=== PATIENT | male | born 1965 | race Two or more races ===

== ENCOUNTER 2021-07-07 17:57 | Inpatient (IN) | payer MEDICAID ==
[~2021-07-07] VITALS: Ht 170.2 cm; Wt 106.6 kg
[2021-07-07] MEDS ORDERED: HYDR25TA MT (19:00)
[2021-07-07 21:03] LABS: BASOPHILS % 0.5 % (0.0-2.0); EOSINOPHILS % 0.1 % (0.0-5.0); HEMATOCRIT. 45.9 % (42.0-52.0); HEMOGLOBIN. 15.3 g/dL (14.0-18.0); MEAN CORPUSCULAR HEMOGLOBIN 28.1 pg (28.0-32.0); MEAN CORPUSCULAR VOLUME 84.3 fL (80.0-94.0); MEAN PLATELET VOLUME 8.6 fl (7.4-10.4); MONOCYTES % 8.4 % (2.0-8.0); PLATELET 236 x1000/uL (130-400); RED BLOOD CELL COUNT 5.45 mill/uL (4.7-6.1); RED CELL DISTRIBUTION WIDTH 13.9 % (11.6-14.6)
[2021-07-07 21:11] LABS: CHLORIDE 93 mEq/L (98-107)
[2021-07-07] MEDS ORDERED: CEFTRIAXONE 1 G PREMIX 50 ML IV ONE (22:15)
[2021-07-07] MEDS ORDERED: NITROGLYCERIN 0.4MG TABLET SL SL PRN ×2 (22:15→22:45)
[2021-07-07] MEDS ORDERED: ASPIRIN 81MG TABLET PO ONE (22:15)
[2021-07-07] MEDS ORDERED: FUROSEMIDE 40MG/4ML VIAL IV ONE (22:15)
[2021-07-07] MEDS ORDERED: AZITHROMYCIN 500MG/250ML 250 ML IV ONE (22:15)
[2021-07-07] MEDS ORDERED: AMLODIPINE 5MG TABLET PO SCH (22:30)
[2021-07-07] MEDS ORDERED: ACETAMINOPHEN 325MG TABLET PO ONE (22:45)
[2021-07-07] MEDS ORDERED: ACETAMINOPHEN 325MG TABLET PO PRN (22:45)
[2021-07-07] MEDS ORDERED: ENOXAPARIN 40MG/0.4ML SYR SUBCUT SCH (22:45)
[2021-07-07] MEDS ORDERED: KETOROLAC 15MG/ML VIAL IV PRN ×2 (22:45)
[2021-07-07] MEDS ORDERED: POTASSIUM CHLORIDE 20MEQ TABLET SR PO SCH (22:45)
[2021-07-07] MEDS ORDERED: CLONIDINE 0.1MG TABLET PO PRN (22:45)
[2021-07-07] MEDS ORDERED: ONDANSETRON HCL 4MG/2ML INJ IV PRN (22:45)
[2021-07-07] MEDS ORDERED: ZOLPIDEM TARTRATE 5MG TABLET PO PRN (22:45)
[2021-07-07] MEDS ORDERED: GUAIFENESIN 200MG/10ML SUGAR FREE UDC PO PRN (22:45)
[2021-07-07] MEDS ORDERED: MAGNESIUM/ALUMINUM HYDROXIDE/SIMETHICONE 30ML UDC PO PRN (22:45)
[2021-07-07] MEDS ORDERED: IPRATROPIUM/ALBUTEROL 0.5-3(2.5)MG/3ML NEB NEB PRN (22:45)
[2021-07-07] MEDS ORDERED: DEXTROSE 50% WATER 50ML SYRINGE IV PRN (22:45)
[2021-07-07] MEDS ORDERED: DOCUSATE SODIUM 100MG CAPSULE PO PRN (22:45)
[2021-07-07 23:23] LABS: ETHANOL BLOOD < 10 mg/dL
[2021-07-07 23:24] LABS: TOTAL IRON BINDING CAPACITY 386 ug/dL (250-450)
[2021-07-07] MEDS: AMLODIPINE 10MG TABLET PO SCH (23:35)
[2021-07-07 23:41] LABS: FOLIC ACID (FOLATE) SERUM 15.5 ng/mL (>5.38)
[2021-07-07 23:51] LABS: CLARITY URINE CLEAR (CLEAR); COLOR URINE YELLOW (YELLOW); KETONES URINE 1+ (NEGATIVE); LEUKOCYTE ESTERASE URINE NEGATIVE (NEGATIVE); NITRITE URINE NEGATIVE (NEGATIVE); OCCULT BLOOD URINE 1+ (NEGATIVE); PROTEIN URINE NEGATIVE (NEGATIVE); SPECIFIC GRAVITY URINE 1.018 (1.005-1.030); UROBILINOGEN URINE 0.2 E.U./dL (0.2-1.0)
[2021-07-08 00:02] LABS: *AMPHETAMINES SCREEN URINE NEGATIVE (NEGATIVE); *BARBITURATES SCREEN URINE NEGATIVE (NEGATIVE); *BENZODIAZEPINES SCREEN URINE NEGATIVE (NEGATIVE); *COCAINE SCREEN URINE NEGATIVE (NEGATIVE); OPIATES URINE SCREEN NEGATIVE (NEGATIVE); PHENCYCLIDINE URINE SCREEN NEGATIVE (NEGATIVE)
[2021-07-08 00:04] LABS: CANNABINOID URINE SCREEN NEGATIVE (NEGATIVE); METHADONE URINE SCREEN NEGATIVE (NEGATIVE)
[2021-07-08 08:24] LABS: BASOPHILS % 0.5 % (0.0-2.0); EOSINOPHILS % 0.4 % (0.0-5.0); HEMATOCRIT. 48.2 % (42.0-52.0); LYMPHOCYTES % 13.7 % (20.0-50.0); MEAN CORPUSCULAR HEMOGLOBIN 27.9 pg (28.0-32.0); MEAN CORPUSCULAR VOLUME 83.8 fL (80.0-94.0); MEAN PLATELET VOLUME 9.1 fl (7.4-10.4); MONOCYTES % 9.6 % (2.0-8.0); NEUTROPHILS % 75.8 % (40.0-76.0); PLATELET 261 x1000/uL (130-400); RED BLOOD CELL COUNT 5.75 mill/uL (4.7-6.1); RED CELL DISTRIBUTION WIDTH 13.9 % (11.6-14.6)
[2021-07-08] MEDS: ENOXAPARIN 30MG/0.3ML SYR SUBCUT SCH ×2 (08:32→20:51)
[2021-07-08] MEDS: AMLODIPINE 10MG TABLET PO SCH (08:33)
[2021-07-08] MEDS: FAMOTIDINE 20MG TABLET PO SCH ×2 (08:33→20:50)
[2021-07-08] MEDS: FUROSEMIDE 40MG/4ML VIAL IVP SCH ×3 (08:33→21:05)
[2021-07-08] MEDS: LISINOPRIL 20MG TABLET PO SCH ×2 (08:33→20:50)
[2021-07-08] MEDS: ASPIRIN 325MG EC TABLET PO SCH (08:33)
[2021-07-08] MEDS: ZINC SULFATE 220 MG ( 50 ) CAPSULE PO SCH (08:34)
[2021-07-08] MEDS: ASCORBIC ACID 500 MG TABLET PO SCH ×2 (08:34→20:47)
[2021-07-08] MEDS: CHOLECALCIFEROL (D3) 1000 UNIT TABLET PO SCH (08:34)
[2021-07-08] MEDS: SPIRONOLACTONE 25MG TABLET PO SCH ×2 (08:35→20:49)
[2021-07-08 08:37] LABS: CHLORIDE 96 mEq/L (98-107)
[2021-07-08] MEDS: BLOOD SUGAR DIAGNOSTIC STRIP TEST SCH ×5 (09:04→20:51)
[2021-07-08 09:05] LABS: PHOSPHORUS 2.9 mg/dL (2.5-4.9)
[2021-07-08] MEDS: INSULIN LISPRO 100 UNITS/ML SUBCUT SCH ×4 (09:07→20:52)
[2021-07-08] MEDS ORDERED: INSULIN GLARGINE UD 100 UNITS/ML SYR SUBCUT SCH (10:00)
[2021-07-08 12:00] VITALS: BP 130/88
[2021-07-08 16:00] VITALS: BP 128/79
[2021-07-08 20:00] VITALS: BP 134/78
[2021-07-08 21:26] LABS: CREATINE KINASE MB FRACTION 2.2 ng/mL (0.5-3.6)
[2021-07-09] VITALS: BP 112/69
[2021-07-09 04:00] VITALS: BP 155/88
[2021-07-09] MEDS: BLOOD SUGAR DIAGNOSTIC STRIP TEST SCH ×4 (07:40→21:06)
[2021-07-09 08:00] VITALS: BP 160/82
[2021-07-09] MEDS: ASCORBIC ACID 500 MG TABLET PO SCH ×2 (08:02→21:05)
[2021-07-09] MEDS: ASPIRIN 325MG EC TABLET PO SCH (08:02)
[2021-07-09] MEDS: FUROSEMIDE 40MG/4ML VIAL IVP SCH ×2 (08:02→21:05)
[2021-07-09] MEDS: ZINC SULFATE 220 MG ( 50 ) CAPSULE PO SCH (08:02)
[2021-07-09] MEDS: LISINOPRIL 20MG TABLET PO SCH ×2 (08:03→21:04)
[2021-07-09] MEDS: SPIRONOLACTONE 25MG TABLET PO SCH ×2 (08:03→21:05)
[2021-07-09] MEDS: CHOLECALCIFEROL (D3) 1000 UNIT TABLET PO SCH (08:03)
[2021-07-09] MEDS: ENOXAPARIN 30MG/0.3ML SYR SUBCUT SCH ×2 (08:03→21:06)
[2021-07-09] MEDS: AMLODIPINE 10MG TABLET PO SCH (08:03)
[2021-07-09] MEDS: FAMOTIDINE 20MG TABLET PO SCH ×2 (08:03→21:05)
[2021-07-09] MEDS: INSULIN LISPRO 100 UNITS/ML SUBCUT SCH ×4 (08:04→21:06)
[2021-07-09] MEDS: INSULIN GLARGINE UD 100 UNITS/ML SYR SUBCUT SCH (10:58)
[2021-07-09 12:00] VITALS: BP 151/93
[2021-07-09 16:00] VITALS: BP 151/93
[2021-07-09 20:00] VITALS: BP 140/71
[2021-07-10 04:00] VITALS: BP 151/90
[2021-07-10] MEDS: BLOOD SUGAR DIAGNOSTIC STRIP TEST SCH ×4 (07:40→21:15)
[2021-07-10 08:00] VITALS: BP 152/98
[2021-07-10] MEDS: AMLODIPINE 10MG TABLET PO SCH (08:02)
[2021-07-10] MEDS: ASCORBIC ACID 500 MG TABLET PO SCH ×2 (08:02→21:13)
[2021-07-10] MEDS: INSULIN LISPRO 100 UNITS/ML SUBCUT SCH ×4 (08:02→21:15)
[2021-07-10] MEDS: ENOXAPARIN 30MG/0.3ML SYR SUBCUT SCH ×2 (08:02→21:13)
[2021-07-10] MEDS: FUROSEMIDE 40MG/4ML VIAL IVP SCH ×2 (08:02→21:13)
[2021-07-10] MEDS: ASPIRIN 325MG EC TABLET PO SCH (08:02)
[2021-07-10] MEDS: ZINC SULFATE 220 MG ( 50 ) CAPSULE PO SCH (08:02)
[2021-07-10] MEDS: CHOLECALCIFEROL (D3) 1000 UNIT TABLET PO SCH (08:03)
[2021-07-10] MEDS: SPIRONOLACTONE 25MG TABLET PO SCH ×2 (08:03→21:13)
[2021-07-10] MEDS: LISINOPRIL 20MG TABLET PO SCH ×2 (08:03→21:13)
[2021-07-10] MEDS: FAMOTIDINE 20MG TABLET PO SCH ×2 (08:03→21:13)
[2021-07-10] MEDS: INSULIN GLARGINE UD 100 UNITS/ML SYR SUBCUT SCH (10:47)
[2021-07-10 12:00] VITALS: BP 135/79
[2021-07-10 16:00] VITALS: BP 139/70
[2021-07-10 20:00] VITALS: BP 158/89
[2021-07-11] VITALS (8 sets, daily range): BP systolic 122–147; BP diastolic 62–95
[2021-07-11] MEDS: BLOOD SUGAR DIAGNOSTIC STRIP TEST SCH ×4 (07:04→21:48)
[2021-07-11] MEDS: FUROSEMIDE 40MG/4ML VIAL IVP SCH (08:08)
[2021-07-11] MEDS: ENOXAPARIN 30MG/0.3ML SYR SUBCUT SCH ×2 (08:09→21:47)
[2021-07-11] MEDS: ASPIRIN 325MG EC TABLET PO SCH (08:09)
[2021-07-11] MEDS: ASCORBIC ACID 500 MG TABLET PO SCH ×2 (08:10→21:48)
[2021-07-11] MEDS: ZINC SULFATE 220 MG ( 50 ) CAPSULE PO SCH (08:10)
[2021-07-11] MEDS: AMLODIPINE 10MG TABLET PO SCH (08:10)
[2021-07-11] MEDS: CHOLECALCIFEROL (D3) 1000 UNIT TABLET PO SCH (08:10)
[2021-07-11] MEDS: FAMOTIDINE 20MG TABLET PO SCH ×2 (08:10→21:48)
[2021-07-11] MEDS: LISINOPRIL 20MG TABLET PO SCH ×2 (08:10→21:48)
[2021-07-11] MEDS: SPIRONOLACTONE 25MG TABLET PO SCH ×2 (08:10→21:48)
[2021-07-11] MEDS: INSULIN LISPRO 100 UNITS/ML SUBCUT SCH ×4 (08:11→21:48)
[2021-07-11] MEDS: ACETAMINOPHEN 325MG TABLET PO PRN (08:18)
[2021-07-11] MEDS: INSULIN GLARGINE UD 100 UNITS/ML SYR SUBCUT SCH (10:48)
[2021-07-11] MEDS: METOPROLOL SUCCINATE 50MG ER TABLET PO SCH (14:15)
[2021-07-11 21:43] LABS: CHLORIDE 96 mEq/L (98-107)
[2021-07-12] VITALS: BP 123/80
[2021-07-12] MEDS: ACETAMINOPHEN 325MG TABLET PO PRN (03:23)
[2021-07-12 04:00] VITALS: BP 145/87
[2021-07-12] MEDS: BLOOD SUGAR DIAGNOSTIC STRIP TEST SCH ×3 (07:02→17:40)
[2021-07-12 08:00] VITALS: BP 127/96
[2021-07-12] MEDS: INSULIN LISPRO 100 UNITS/ML SUBCUT SCH ×3 (08:46→18:54)
[2021-07-12] MEDS: FAMOTIDINE 20MG TABLET PO SCH (08:47)
[2021-07-12] MEDS: ASCORBIC ACID 500 MG TABLET PO SCH (08:47)
[2021-07-12] MEDS: ZINC SULFATE 220 MG ( 50 ) CAPSULE PO SCH (08:47)
[2021-07-12] MEDS: SPIRONOLACTONE 25MG TABLET PO SCH (08:47)
[2021-07-12] MEDS: CHOLECALCIFEROL (D3) 1000 UNIT TABLET PO SCH (08:48)
[2021-07-12] MEDS: LISINOPRIL 20MG TABLET PO SCH (08:48)
[2021-07-12] MEDS: ENOXAPARIN 30MG/0.3ML SYR SUBCUT SCH (08:49)
[2021-07-12] MEDS: AMLODIPINE 10MG TABLET PO SCH (08:57)
[2021-07-12] MEDS ORDERED: FUROSEMIDE 40MG/4ML VIAL IVP SCH (09:00)
[2021-07-12] MEDS ORDERED: ASPIRIN 325MG EC TABLET PO SCH (09:00)
[2021-07-12] MEDS: INSULIN GLARGINE UD 100 UNITS/ML SYR SUBCUT SCH (11:54)
[2021-07-12 12:00] VITALS: BP 129/84
[2021-07-12 13:21] VITALS: BP 129/84
[2021-07-12 15:55] VITALS: BP 104/61
[2021-07-12] MEDS: METOPROLOL SUCCINATE 50MG ER TABLET PO SCH (16:16)
== END 2021-07-12 19:50 | disposition home or self-care (01) | DRG 137 ==
LOC: ER 17:57 → MICUSO 22:24 → EDBEDREQTM 22:50 → EDBEDREQ 22:50 → ENRESERV 07-08 08:42 → 7WST 07-08 11:50
PROVIDERS: ADMIT Internal Medicine; ATTEND Internal Medicine
DX: U07.1 COVID-19 (principal); E11.00 Type 2 diabetes mellitus with hyperosmolarity without nonketotic hyperglycemic-hyperosmolar coma (NKHHC); I21.4 Non-ST elevation (NSTEMI) myocardial infarction; I50.43 Acute on chronic combined systolic (congestive) and diastolic (congestive) heart failure; I11.0 Hypertensive heart disease with heart failure; E88.09 Other disorders of plasma-protein metabolism, not elsewhere classified; E87.1 Hypo-osmolality and hyponatremia; E11.65 Type 2 diabetes mellitus with hyperglycemia; I47.2 Ventricular tachycardia; I49.3 Ventricular premature depolarization; Z79.899 Other long term (current) drug therapy
CPT/HCPCS: 36415; 71045; 80048; 80053; 80305; 80320; 81003; 82550; 82553; 82607; 82746; 82962; 83036; 83540; 83550; 83605; 83735; 83880; 84100; 84145; 84484; 85025; 87426; 93005; 93970; 99285; J0456; J0696; J1650; J1815; J1885; J1940; G0480